=== PATIENT | male | born 1940 | race African-American/Black ===

== ENCOUNTER 2017-09-08 14:05 | Inpatient (IN) | payer MEDICARE, BC ==
[~2017-09-08] VITALS: Ht 175.3 cm; Wt 63.5 kg
[2017-09-08] MEDS ORDERED: IV NORMAL SALINE 1000 ML BAG IV ONE (14:45)
[2017-09-08 15:06] LABS: BASOPHILS % (AUTO) 0.7 % (0.0-2.0); EOSINOPHILS % (AUTO) 0.9 % (0.0-7.0); HEMATOCRIT 38.1 % (36.7-47.1); HEMOGLOBIN 12.6 g/dL (12.5-16.3); LYMPHOCYTES # (AUTO) 1.6 K/uL (20.0-40.0); LYMPHOCYTES % (AUTO) 43.7 % (20.5-51.5); MEAN CORPUSCULAR HEMOGLOBIN 31.7 uug (23.8-33.4); MEAN CORPUSCULAR HGB CONC 33 g/dL (32.5-36.3); MEAN CORPUSCULAR VOLUME 96.1 fL (73.0-96.2); MONOCYTES # (AUTO) 0.3 K/uL (2.0-10.0); MONOCYTES % (AUTO) 9.1 % (0.0-11.0); NEUTROPHILS # (AUTO) 1.6 K/uL (1.8-8.9); NEUTROPHILS % (AUTO) 45.6 % (38.5-71.5); PLATELET COUNT (AUTO) 240 K/uL (152-348); RED BLOOD CELL COUNT(AUTO) 3.97 MIL/uL (4.06-5.63); WHITE BLOOD COUNT (AUTO) 3.6 K/uL (3.6-10.2)
[2017-09-08 15:15] LABS: CARBON DIOXIDE 33 mmol/L (21-32); CHLORIDE 100 mmol/L (98-107); CREATININE 0.8 mg/dL (0.6-1.3); GLUCOSE 93 mg/dL (74-106); POTASSIUM 3.9 mmol/L (3.5-5.1); UREA NITROGEN, BLOOD 11 mg/dL (7-18)
[2017-09-08 15:19] LABS: ETHANOL < 3 MG/DL (0-0)
[2017-09-08 15:20] LABS: ALANINE AMINOTRANSFERASE 9 U/L (16-63); ALKALINE PHOSPHATASE 60 U/L (50-136); ASPARTATE AMINOTRANSFERASE 15 U/L (15-37); BILIRUBIN,DIRECT 0.1 mg/dL (0.0-0.2); BILIRUBIN,TOTAL 0.3 mg/dL (0.2-1.0); TOTAL PROTEIN, SERUM 7.4 g/dL (6.4-8.2)
[2017-09-08 15:22] LABS: ACETAMINOPHEN < 2.0 ug/mL (10-30)
[2017-09-08] MEDS ORDERED: DIVA500T54 PO (15:50)
[2017-09-08] MEDS ORDERED: CRAN450T9 PO (15:50)
[2017-09-08] MEDS ORDERED: ATOR10TA PO (15:50)
[2017-09-08] MEDS ORDERED: DULCOLAX SUPP PR (15:50)
[2017-09-08] MEDS ORDERED: DOCU100C36 PO (15:50)
[2017-09-08] MEDS ORDERED: FERR325T28 PO (15:57)
[2017-09-08] MEDS ORDERED: ERYT3.5O24 EACHEYE (15:57)
[2017-09-08 16:25] LABS: *BLOOD, URINE NEGATIVE (NEGATIVE); *CLARITY,URINE CLEAR (CLEAR); *COLOR,URINE DARK YELLOW (YELLOW); *KETONES,URINE TRACE (NEGATIVE); *PROTEIN,URINE 1+ (NEGATIVE); LEUKOCYTE ESTERASE ,URINE NEGATIVE (NEGATIVE); NITRITE, URINE NEGATIVE (NEGATIVE); PH,URINE 6.5 (5.0-8.0); UGLUCOSE NEGATIVE (NEGATIVE)
[2017-09-08 16:30] LABS: *BILIRUBIN,URIN NEGATIVE (NEGATIVE)
[2017-09-08 16:33] LABS: BACTERIA,URINE NONE SEEN /HPF (NONE SEEN); MUCUS,URINE MODERATE /LPF (0-FEW); RBC,URINE 0-3 /HPF (0-3); SQUAMOUS EPITHELIAL CELL,UR FEW /HPF (NONE SEEN); WBC,URINE 0-3 /HPF (0-3)
[2017-09-08] MEDS ORDERED: ACET-2154 PO ×2 (16:35)
[2017-09-08] MEDS ORDERED: MULT-213 PO (16:35)
[2017-09-08] MEDS ORDERED: CITA20TA16 PO (16:35)
[2017-09-08] MEDS ORDERED: METF500T6 PO (16:35)
[2017-09-08] MEDS ORDERED: LATA2.5D7 EACHEYE (16:35)
[2017-09-08] MEDS ORDERED: SENN-18 PO (16:35)
[2017-09-08] MEDS ORDERED: TIMO5SOL11 EACHEYE (16:35)
[2017-09-08] MEDS ORDERED: MEMA10TA PO (16:35)
[2017-09-08] MEDS ORDERED: KETO5DRO39 LEFTEYE (16:35)
[2017-09-08] MEDS ORDERED: MAGN400O6 PO (16:35)
[2017-09-08 16:42] LABS: *AMPHETAMINE, URINE NEGATIVE (NEGATIVE); *BARBITURATE, URINE NEGATIVE (NEGATIVE); *CANNABINOID, URINE NEGATIVE (NEGATIVE); *COCCAINE, URINE NEGATIVE (NEGATIVE); *OPIATE, URINE NEGATIVE (NEGATIVE); *PHENCYCLIDINE SCREEN,URINE NEGATIVE (NEGATIVE)
[2017-09-08 18:00] VITALS: BP 119/62
[2017-09-08] MEDS ORDERED: MEMA7CAP PO (20:10)
[2017-09-08] MEDS ORDERED: ACETAMINOPHEN 325 MG TABLET PO PRN (20:15)
[2017-09-08] MEDS ORDERED: IV D5/ 0.9% NACL 1,000 ML IV PRN (20:15)
[2017-09-08] MEDS ORDERED: BISACODYL 10 MG SUPP.RECT RC PRN (20:15)
[2017-09-08] MEDS ORDERED: MAGNESIUM HYDROXIDE 30 ML LIQUID UDC PO PRN (20:15)
[2017-09-08 20:57] VITALS: BP 149/77
[2017-09-08] MEDS: ERYTHROMYCIN 0.5% OPHT OINT 3.5 GM TUBE EACHEYE SCH (21:39)
[2017-09-08] MEDS: SENNOSIDES 1 TABLET PO SCH (21:39)
[2017-09-09 04:00] VITALS: BP 122/50
[2017-09-09 06:45] LABS: BASOPHILS % (AUTO) 0.8 % (0.0-2.0); EOSINOPHILS % (AUTO) 0.9 % (0.0-7.0); HEMATOCRIT 37.4 % (36.7-47.1); HEMOGLOBIN 12.4 g/dL (12.5-16.3); LYMPHOCYTES # (AUTO) 1.4 K/uL (20.0-40.0); LYMPHOCYTES % (AUTO) 36.5 % (20.5-51.5); MEAN CORPUSCULAR HEMOGLOBIN 31.7 uug (23.8-33.4); MEAN CORPUSCULAR HGB CONC 33 g/dL (32.5-36.3); MEAN CORPUSCULAR VOLUME 95.8 fL (73.0-96.2); MONOCYTES # (AUTO) 0.4 K/uL (2.0-10.0); MONOCYTES % (AUTO) 10.6 % (0.0-11.0); NEUTROPHILS % (AUTO) 51.2 % (38.5-71.5); PLATELET COUNT (AUTO) 239 K/uL (152-348); RED BLOOD CELL COUNT(AUTO) 3.91 MIL/uL (4.06-5.63); WHITE BLOOD COUNT (AUTO) 3.9 K/uL (3.6-10.2)
[2017-09-09 06:57] LABS: CARBON DIOXIDE 32 mmol/L (21-32); CHLORIDE 104 mmol/L (98-107); CREATININE 0.7 mg/dL (0.6-1.3); GLUCOSE 120 mg/dL (74-106); UREA NITROGEN, BLOOD 9 mg/dL (7-18)
[2017-09-09] MEDS ORDERED: DEXTROSE 50% 50 ML DISP.SYRIN IV PRN (07:30)
[2017-09-09] MEDS ORDERED: INSULIN REGULAR, HUMAN 300 UNIT/3 ML VIAL SQ PRN (07:30)
[2017-09-09] MEDS ORDERED: METFORMIN HCL 500 MG TABLET PO SCH (08:00)
[2017-09-09] MEDS: BLOOD SUGAR DIAGNOSTIC 1 EACH STRIP VI SCH ×4 (08:23→20:27)
[2017-09-09] MEDS: DIVALPROEX 250 MG TABLET.DR PO SCH ×2 (08:31→16:38)
[2017-09-09] MEDS: DOCUSATE SODIUM 100 MG CAPSULE PO SCH (08:31)
[2017-09-09] MEDS: FERROUS SULFATE 325 MG TABEC PO SCH (08:31)
[2017-09-09] MEDS: MULTIVIT, IRON, MIN NO. 8, FA TABLET PO SCH (08:31)
[2017-09-09] MEDS ORDERED: HOME MED MISCELLANEOUS PO SCH ×2 (09:00)
[2017-09-09] MEDS ORDERED: HOME MED MISCELLANEOUS LEFTEYE SCH (09:00)
[2017-09-09] MEDS ORDERED: TIMOLOL MALEATE XE 0.5% OPHT 5 ML BOTTLE EACHEYE SCH (09:00)
[2017-09-09] MEDS ORDERED: CITALOPRAM 20 MG TABLET PO SCH (09:00)
[2017-09-09] MEDS ORDERED: DIVALPROEX ER 500 MG TAB.SR.24H PO SCH (09:00)
[2017-09-09 11:43] VITALS: BP 115/72
[2017-09-09] MEDS ORDERED: ZIPRASIDONE 20 MG CAPSULE PO ONE (12:00)
[2017-09-09] MEDS ORDERED: ZIPRASIDONE MESYLATE 20 MG VIAL IM ONE ×2 (13:45→20:15)
[2017-09-09] MEDS: TIMOLOL MALEATE 0.5% OPHT DROP 5 ML BOTTLE EACHEYE SCH ×2 (15:35→20:25)
[2017-09-09 15:53] VITALS: BP 128/68
[2017-09-09] MEDS: QUETIAPINE FUMARATE 25 MG TABLET PO PRN (18:48)
[2017-09-09] MEDS: ERYTHROMYCIN 0.5% OPHT OINT 3.5 GM TUBE EACHEYE SCH (20:25)
[2017-09-09] MEDS: LATANOPROST OPHT DROP 2.5 ML BOTTLE EACHEYE SCH (20:26)
[2017-09-09] MEDS: SENNOSIDES 1 TABLET PO SCH (20:27)
[2017-09-09 20:52] VITALS: BP 99/54
[2017-09-09] MEDS ORDERED: QUETIAPINE FUMARATE 200 MG TABLET PO SCH ×2 (21:00)
[2017-09-09] MEDS ORDERED: ATORVASTATIN 10 MG TABLET PO SCH (21:00)
[2017-09-09] MEDS ORDERED: QUETIAPINE FUMARATE 25 MG TABLET PO SCH (21:00)
[2017-09-09] MEDS ORDERED: MEMANTINE HCL 5 MG TABLET PO SCH (21:00)
[2017-09-10 04:53] VITALS: BP 144/81
[2017-09-10] MEDS: BLOOD SUGAR DIAGNOSTIC 1 EACH STRIP VI SCH ×4 (06:30→20:07)
[2017-09-10 07:47] LABS: THYROID STIMULATING HORMONE 1.689 mIU/mL (0.358-3.740)
[2017-09-10] MEDS: MULTIVIT, IRON, MIN NO. 8, FA TABLET PO SCH (08:01)
[2017-09-10] MEDS: FERROUS SULFATE 325 MG TABEC PO SCH (08:01)
[2017-09-10] MEDS: DOCUSATE SODIUM 100 MG CAPSULE PO SCH (08:01)
[2017-09-10] MEDS: TIMOLOL MALEATE 0.5% OPHT DROP 5 ML BOTTLE EACHEYE SCH ×2 (08:01→20:07)
[2017-09-10] MEDS: DIVALPROEX 250 MG TABLET.DR PO SCH ×2 (08:02→16:00)
[2017-09-10] MEDS: CITALOPRAM 20 MG TABLET PO SCH (08:02)
[2017-09-10 11:46] VITALS: BP 136/67
[2017-09-10] MEDS: QUETIAPINE FUMARATE 25 MG TABLET PO PRN (13:36)
[2017-09-10 15:58] VITALS: BP 103/51
[2017-09-10] MEDS: SENNOSIDES 1 TABLET PO SCH (18:47)
[2017-09-10] MEDS: QUETIAPINE FUMARATE 25 MG TABLET PO SCH (19:46)
[2017-09-10] MEDS: ATORVASTATIN 10 MG TABLET PO SCH (19:47)
[2017-09-10] MEDS: ERYTHROMYCIN 0.5% OPHT OINT 3.5 GM TUBE EACHEYE SCH (19:48)
[2017-09-10 19:57] VITALS: BP 129/72
[2017-09-10] MEDS: LATANOPROST OPHT DROP 2.5 ML BOTTLE EACHEYE SCH (20:07)
[2017-09-11 06:00] VITALS: BP 119/74
[2017-09-11] MEDS: BLOOD SUGAR DIAGNOSTIC 1 EACH STRIP VI SCH ×3 (06:36→16:44)
[2017-09-11] MEDS ORDERED: QUET25TA PO ×2 (07:47)
[2017-09-11] MEDS ORDERED: FOLI1TAB16 PO (07:50)
[2017-09-11] MEDS: DOCUSATE SODIUM 100 MG CAPSULE PO SCH (08:38)
[2017-09-11] MEDS: DIVALPROEX 250 MG TABLET.DR PO SCH ×2 (08:38→17:21)
[2017-09-11] MEDS: CITALOPRAM 20 MG TABLET PO SCH (08:38)
[2017-09-11] MEDS: FERROUS SULFATE 325 MG TABEC PO SCH (08:38)
[2017-09-11] MEDS: MULTIVIT, IRON, MIN NO. 8, FA TABLET PO SCH (08:38)
[2017-09-11] MEDS: TIMOLOL MALEATE 0.5% OPHT DROP 5 ML BOTTLE EACHEYE SCH (08:39)
[2017-09-11 10:33] VITALS: BP 126/66
[2017-09-11 15:21] VITALS: BP 121/66
[2017-09-11] MEDS: SENNOSIDES 1 TABLET PO SCH (17:20)
[2017-09-11] MEDS: ATORVASTATIN 10 MG TABLET PO SCH (17:20)
[2017-09-11] MEDS: QUETIAPINE FUMARATE 25 MG TABLET PO SCH (17:21)
[2017-09-11] MEDS: ERYTHROMYCIN 0.5% OPHT OINT 3.5 GM TUBE EACHEYE SCH (17:22)
[2017-09-11] MEDS ORDERED: MEMANTINE HCL 5 MG TABLET PO SCH (18:00)
== END 2017-09-11 20:41 | DRG 637 ==
LOC: ER 14:05 → TELE 17:33 → MED 18:00
PROVIDERS: ADMIT Internal Medicine; ATTEND Internal Medicine
DX: E11.649 Type 2 diabetes mellitus with hypoglycemia without coma (principal); G93.41 Metabolic encephalopathy; F02.81 Dementia in other diseases classified elsewhere, unspecified severity, with behavioral disturbance; G30.9 Alzheimer's disease, unspecified; E44.1 Mild protein-calorie malnutrition; R62.7 Adult failure to thrive; E11.42 Type 2 diabetes mellitus with diabetic polyneuropathy; R41.82 Altered mental status, unspecified; H40.9 Unspecified glaucoma; F39 Unspecified mood [affective] disorder; Z79.84 Long term (current) use of oral hypoglycemic drugs; Z79.899 Other long term (current) drug therapy; E53.8 Deficiency of other specified B group vitamins; E78.00 Pure hypercholesterolemia, unspecified; Z87.891 Personal history of nicotine dependence; Z87.440 Personal history of urinary (tract) infections; I10 Essential (primary) hypertension; E78.5 Hyperlipidemia, unspecified; Z68.20 Body mass index [BMI] 20.0-20.9, adult
CPT/HCPCS: 36415; 70030-TC; 70450; 71045; 80307; 82746; 84443; 85025; 86592; 87086; 93005; A4663; G0480; G0480-TC; J1815; J3486; J3490; J7030; J7042